=== PATIENT | male | born 1975 | race Caucasian/White ===

== ENCOUNTER 2018-03-24 09:31 | Emergency (ER) | END 2018-03-24 11:47 | disposition home or self-care (01) ==

== ENCOUNTER 2019-02-22 12:05 | Emergency (ER) | payer BC, MEDICARE, MEDICAID ==
[~2019-02-22] VITALS: Wt 80.0 kg
[~2019-02-22 12:05] MED LIST: BACTDS PO; BEN25 PO; CEPH-443 PO; FURO-109 PO; IBUP-1542 PO; LACT10SO5 PO; LEVE100018 PO; LORA1TAB PO; ONDA4TAB8 PO; PANT40TA3 PO; PROP20TA4 PO; SUMA25TA34 PO
[2019-02-22 12:11] VITALS: BP 138/75; PULSE 75; RESP 20
[2019-02-22] MEDS ORDERED: CEPH-443 PO (13:50)
[2019-02-22] MEDS ORDERED: IBUP-1542 PO (13:50)
--- NOTE | 2019-02-22 13:52 | ERD ---
ER Documentation Chief Complaint Chief Complaint headache from toothache on L side of face for a month. no neuro def HPI 43-year-old male presents with a one-month history of pain in his left upper dental area in the area of his posterior molars. Denies any fevers, vomiting, shortness breath or chest pain. Patient has a history of subdural hematoma due to trauma. He also has a history of cirrhosis. He is having pain despite ibuprofen. Cures review shows approximately 180 oxycodone and 60 Xanax per month. ROS All systems reviewed and are negative except as per history of present illness. Medications Home Meds Active Scripts Cephalexin* (Keflex*) 500 Mg Capsule, 500 MG PO QID for 10 Days, CAP Prov:ZEINA LEE MD 02/22/19 Ibuprofen* (Motrin*) 600 Mg Tab, 600 MG PO Q6, #20 TAB Prov:ZEINA LEE MD 02/22/19 Ibuprofen* (Motrin*) 600 Mg Tab, 600 MG PO Q6, #20 TAB Prov:JAMES PATEL MD 12/26/15 Cephalexin* (Keflex*) 500 Mg Capsule, 500 MG PO QID for 7 Days, CAP Prov:JAMES PATEL MD 12/26/15 Cephalexin* (Keflex*) 500 Mg Capsule, 500 MG PO QID for 7 Days, CAP Prov:DANISH VENEGAS MD 08/01/15 Sulfamethoxazole-Trimethoprim* (Bactrim* DS) 800-160 Mg Tab, 1 TAB PO BID for 7 Days, TAB Prov:DANISH VENEGAS MD 08/01/15 Sumatriptan Succinate* (Imitrex*) 25 Mg Tablet, 25 MG PO BID PRN for HEADACHE, #14 TAB May repeat after 2 hours if needed; MAX 200 mg/24 hours Prov:DANISH VENEGAS MD 08/01/15 Lorazepam* (Lorazepam*) 1 Mg Tablet, 1 MG PO Q8, #10 TAB Prov:AMERICA RODRIGUEZ MD 07/25/15 Ondansetron Hcl* (Zofran*) 4 Mg Tablet, 4 MG PO Q6H for NAUSEA AND/OR VOMITING, #30 TAB Prov:AMERICA RODRIGUEZ MD 07/25/15 Reported Medications Propranolol Hcl* (Propranolol Hcl*) 20 Mg Tablet, 20 MG PO DAILY, TAB 9/14/15 Pantoprazole* (Protonix*) 40 Mg Tablet.dr, 40 MG PO DAILY, TAB 07/13/15 Levetiracetam* (Keppra*) 1,000 Mg Tablet, 2000 MG PO BID, TAB 06/27/15 Lactulose* (Lactulose*) 10 Gm/15 Ml Solution, 30 GM PO TID, ML 01/29/15 Diphenhydramine Hcl* (Benadryl*) 25 Mg Cap, 50 MG PO Q6H PRN for ITCHING, CAP 01/01/15 Furosemide* (Lasix*) 40 Mg Tablet, 40 MG PO DAILY, TAB 01/01/15 Allergies Allergies: Coded Allergies: No Known Allergy (Unverified , 03/24/18) PMhx/Soc History of Surgery: Yes (crainiotomy, gallbladder) Anesthesia Reaction: No Hx Neurological Disorder: Yes (seizures) Hx Respiratory Disorders: No Hx Cardiac Disorders: No Hx Psychiatric Problems: No Hx Miscellaneous Medical Probl: Yes (waiting for liver transplant) Hx Alcohol Use: No Hx Substance Use: No Hx Tobacco Use: No Physical Exam Vitals Vital Signs Date Temp Pulse Resp B/P (MAP) Pulse Ox O2 O2 Flow FiO2 Time Delivery Rate 02/22/19 98.3 75 20 138/75 98 12:11 (96) Physical Exam Const: No acute distress Head: Atraumatic Eyes: Normal Conjunctiva ENT: Normal External Ears, Nose and Mouth. Tenderness left upper posterior molar. No facial erythema or induration. Airway patent. Neck: Full range of motion. No meningismus. Resp: Clear to auscultation bilaterally Cardio: Regular rate and rhythm, no murmurs Abd: Soft, non tender, non distended. Normal bowel sounds Skin: No petechiae or rashes Back: No midline or flank tenderness Ext: No cyanosis, or edema Neur: Awake and alert Psych: Normal Mood and Affect Results 24 hrs Current Medications Medications Dose Sig/[place] Start Time Status Last (Trade) Ordered Route PRN Stop Time Admin Dose Reason Admin Cephalexin 500 mg ONCE ONCE 02/22/19 DC 02/22/19 (Keflex) PO 14:00 13:53 02/22/19 14:01 Ibuprofen 600 mg ONCE ONCE 02/22/19 DC 02/22/19 (Motrin) PO 14:00 13:53 02/22/19 14:01 Procedures/MDM Patient presents with left upper dental pain for the last month. He has no signs of airway obstruction, facial cellulitis, abscess, additional complications. We treated with Keflex, ibuprofen, recommendations for dental follow-up and return precautions. The patient was stable with no new complaints during the ER course. Clinically, there is no current evidence to suggest meningitis, sepsis, acute abdomen, pneumonia, stroke, acute coronary syndrome, pulmonary embolism, aortic dissection or any other emergent condition appearing to require further evaluation or hospitalization. Patient counseled regarding my diagnostic impression and care plan. Prior to discharge all questions answered. Pt agrees with treatment plan and understands strict return precautions. Pt is instructed to follow up with primary care provider within 24- 48 hours. Precautionary instructions provided including instructions to return to the ER if not improving or for any worsening or changing symptoms or concerns. Departure Diagnosis: Primary Impression: Pain, dental Condition: Stable Patient Instructions: Dental Pain Referrals: [facility] ([facility]) Additional Instructions: See dentist for further evaluation treatment. Recheck for fevers, additional new or worsening symptoms. ZEINA LEE MD Feb 22, 2019 13:52
[2019-02-22] MEDS ORDERED: CEPHALEXIN 500 MG CAP PO ONE (14:00)
[2019-02-22] MEDS ORDERED: IBUPROFEN 600 MG TAB PO ONE (14:00)
== END 2019-02-22 14:59 | disposition home or self-care (01) ==
LOC: FTE 12:05
DX: K08.89 Other specified disorders of teeth and supporting structures (principal)
CPT/HCPCS: 99283

== ENCOUNTER 2019-02-28 20:44 | Emergency (ER) | payer BC, MEDICAID, MEDICARE | END 2019-03-01 00:52 | disposition left against medical advice (07) | LOC: E/R 20:44 | DX: Z53.21 Procedure and treatment not carried out due to patient leaving prior to being seen by health care provider (principal) ==